=== PATIENT | female | born 1940 | race Caucasian/White ===

== ENCOUNTER 2021-02-22 10:15 | Emergency (ER) | payer MEDICARE ==
[2021-02-22 12:35] LABS: HEMOGLOBIN 16.2 gm/dl (12.3-15.3); RED BLOOD COUNT 5.72 M/UL (4.00-5.10); WHITE BLOOD COUNT 11.6 K/UL (4.5-11.0)
[2021-02-22 13:02] LABS: BUN/CREATININE RATIO 16 (0-10)
[2021-02-22] MEDS ORDERED: FLORASTOR250 MG PO (17:04)
[2021-02-22] MEDS ORDERED: AUGMENTIN 875-1 EACH PO (17:04)
== END 2021-02-22 17:17 | disposition home or self-care (01) ==
LOC: ER1 10:15
PROVIDERS: Physician Assistant Medical
DX: K52.9 Noninfective gastroenteritis and colitis, unspecified (principal); E78.5 Hyperlipidemia, unspecified; I10 Essential (primary) hypertension; Z90.710 Acquired absence of both cervix and uterus; F17.200 Nicotine dependence, unspecified, uncomplicated; Z85.118 Personal history of other malignant neoplasm of bronchus and lung
CPT/HCPCS: 80053; 81001; 85025; 99284; Q9967